=== PATIENT | female | born 1940 | race Caucasian/White ===

== ENCOUNTER 2017-02-23 06:52 | Outpatient (CLI) | payer MEDICARE, OTHER ==
[~2017-02-23] VITALS: Ht 152.4 cm; Wt 57.7 kg
--- NOTE | ~2017-02-23 | CATH ---
Cardiac Diagnostic + PCI Report Demographics Patient Name TAWANNA ARVIZU Gender Female Date of 1940 Age 76 year(s) Patient Number [id number] Date of Study 02/23/2017 Visit Number [id number] [place] [id number] Ht 152.4 cm Wt 57.7 kg Referring Dave Hidalgo Armani Primary Physician Physician IRVIN Pak MD Per[facility] Secondary Physician Physician Mellisa [facility] Diagnostic [facility] Assisting Physician Physician Mellisa CHOI Interventional [facility] [place] Physician Sand Cutter Physician Mellisa CHOI Addendum Added facility and accession # Findings and Conclusions Diagnostic Findings and Conclusion 2 vessel CAD. DÍAZ - LAD/DIAG patent. Mid RCA 60% diffuse disease. Diagnostic Recommendations iFR RCA. Interventional Findings and Conclusion iFR RCA 0.93 and is not physiologically significant and does not warrant any revascularization. Interventional Recommendations Medical treatment. Patient will be discharged later today. Continue current medications. Hydration and followup creatinine. Patient has been instructed to not lift anything more than 5 pounds for 1 week. I will plan on seeing the patient back in 2 week(s). I would like to thank Dr. Rocky Hinojosa for the opportunity to participate in the care of Mr. Fernandez. Procedure Description The patient was brought to the diagnostic cardiac catheterization-EP laboratory in the fasting, non-sedated state. Informed consent was obtained in the written and verbal form after the risks and benefits were explained. The patient had no further questions and agreed to proceed. The planned puncture-incision site(s) were shaved and prepped with ChloraPrep and draped in the usual sterile manner. Conscious sedation, supplemental oxygen, and pain control medications were delivered by a registered nurse under physician guidance. Surface ECG rhythm, blood pressure measurement, and pulse oximetry were monitored throughout the procedure. Arterial access. The access site was infiltrated with lidocaine. The vessel was entered with the Seldinger technique. A sheath was advanced into the vessel and used for catheter placement. Selective left coronary angiography. A catheter was advanced into the left coronary vessel ostium under Fluoroscopic guidance. Contrast was injected by hand. Images were obtained in multiple projections. Selective right coronary angiography. A catheter was advanced into the right coronary vessel ostium under fluoroscopic guidance. Contrast was injected by hand. Images were obtained in multiple projections. Left heart catheterization. A catheter was advanced across the aortic valve to the left ventricle under fluoroscopic guidance. Resting hemodynamics were obtained. Selective DÍAZ graft angiography. A catheter was advanced into the left internal mammary graft ostium under fluoroscopic guidance. Contrast was injected by hand. Images were obtained in multiple projections. Selective SVG angiography. A catheter was advanced into the graft proximal anastomosis under fluoroscopic guidance. Contrast was injected by hand. Images were obtained in multiple projections. iFR measurement was performed. The vessel was entered with a guiding catheter. The iFR wire was normalized and then advanced across the lesion. Measurements were taken. Arterial artery hemostasis was achieved. The patient was transferred to a regular nursing floor via cart accompanied by a nurse. The patient left the laboratory in stable condition. Diagnostic Cath Status: Elective Procedure Procedure Type PCI procedure:Additional Imaging:, FFR/iFR:, Initial Vessel Indications: Syncope and Abnormal Stress Test. The procedure was explained in detail to the patient. Risks, complications and alternative treatments were reviewed. Written consent was obtained. Medications Reviewed with Patient prior to Procedure. Angiographic Findings Dominance: Right Cardiac Arteries and Lesion Findings LMCA: Normal (0% Stenosis). LAD: Lesion on Prox LAD: 90% stenosis . Lesion on Mid LAD: 100% stenosis . LCx: Normal (0% Stenosis). RCA: Lesion on Mid RCA: 60% stenosis . Comments:iFR 0.93 Devices used - Verrata Pressure Wire. Number of passes: 1. Cardiac Grafts - There is a DÍAZ graft that originates at the DÍAZ and attaches to the Dist LAD (Patent). - There is a Vein graft that originates at the Aorta Left and attaches to the 1st Diag (Patent). Coronary Tree Procedure Data Procedure Date Date: 02/23/2017Start: 09:15 AMEnd: 09:57 AM Entry Locations - Retrograde Percutaneous access was performed through the Right Femoral artery (Primary location). A 6 Fr sheath was inserted. Hemostasis was successfully obtained using Angio-Seal STS PLUS ([facility]). Closure Comments: Performed by Dr. Carlton.. Procedure Medications Order and Administration + + +---------+ + !Time !Medication !Dosage !Route ! + + +---------+ + !02/23/2017 09:01 AM !Fentanyl !50 mcg !I.V. ! + + +---------+ + !02/23/2017 09:12 AM !Oxygen !2 l/min !NC ! + + +---------+ + !02/23/2017 09:14 AM !Versed !0.5 mg !I.V. ! + + +---------+ + !02/23/2017 09:21 AM !Versed !1 mg !I.V. ! + + +---------+ + !02/23/2017 09:50 AM !0.9% NaCl !200 ml !I.V. bolus ! + + +---------+ + Devices Used - A5 Fr. BS JL 3.5 Diag. Catheterwas used for:Left coronary angiography. - A5 Fr. BS JR 4 Diag. Catheterwas used for:Right coronary angiography. - A6 Fr. JR4 Guide Catheterwas used for:RCA Intervention. Contrast Material - Isovue 72233 ml Fluoroscopy Time: Diagnostic: 5:30 minutes. Total: 5:30 minutes. Fluoroscopy Dose: Diagnostic: 281 mGy. Total: 281 mGy. Estimated Blood Loss: 10 ml. Medical History Performed Procedures and Imaging Results - Stress testing with SPECT MPIwas performed. Results were: Positive. Risk/Extent of ischemia was: High risk. Allergies - Sulfa. 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 Admission Data Admit Source: Other Insurance Payors: Medicare. Admission Medications + +------+------+ + + + + !Medication !Dosage!Times !Last !Last !Administered !Comments ! ! ! !Per !Delivery !Delivery ! ! ! ! ! !Day !Date !Time ! ! ! + +------+------+ + + + + !BRY ! ! ! ! !Yes ! ! !Inhibitor ! ! ! ! ! ! ! !(any) ! ! ! ! ! ! ! + +------+------+ + + + + !Statin (any)! ! ! ! !Yes ! ! + +------+------+ + + + + !Aspirin ! ! ! ! !Yes ! ! !(any) ! ! ! ! ! ! ! + +------+------+ + + + + Clinical Evaluation Leading to Procedure - The patient's CAD presentation was assessed as: Symptom unlikely to be ischemic. 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 - The patient has been in a state of heart failure within the past two weeks. - The patient's heart failure status was assessed as NYHA Class II. Hemodynamics Condition: Rest O2 Consumption: Estimated: 134.01Heart Rate: 61 bpm Pressures (mmHg) +-----+ + !Site !Pressure ! +-----+ + !AO !103/53 (74) ! +-----+ + !LV !107/-3 ,2 ! +-----+ + !LV !104/0 ,3 ! +-----+ + !AO !107/54 (76) ! +-----+ + !LV !106/0 ,4 ! +-----+ + Valve Gradients and Areas + +---------+---------+---------+ +---------+ + !Valve !Peak !Mean !Area !Index !Flow !Source ! + +---------+---------+---------+ +---------+ + !Aortic !0 !0 ! ! ! ! ! + +---------+---------+---------+ +---------+ + !Aortic !0 !0 ! ! ! ! ! + +---------+---------+---------+ +---------+ + Shunts Oxygen Values O2 Capacity 189.04 O2 Consumption 134.01 Discharge Data Discharge Date: 02/23/2017 Signatures dtt: MELLISA SANDOVAL dtd: 02/23/17 0915 Physician Self Edkarthikeyan
[~2017-02-23 06:52] MED LIST: ASPIRIN LO-DOSE81 MG PO; LIPITOR40 MG PO; PRILOSEC20 MG PO; THERA-VITE W/ B1 TAB PO; VITAMIN B-12500 MCG PO; ZESTORETIC 20-1 EACH PO
[2017-02-23 07:48] LABS: BASOPHIL # 0.1 K/uL (0.0-0.2); BASOPHIL % 0.7 %; EOSINOPHIL # 0.2 K/uL (0.0-0.5); EOSINOPHIL % 2.6 %; HEMOGLOBIN 13.9 g/dL (10.0-15.0); IMMATURE GRANULOCYTE % 0.3 %; LYMPHOCYTE # 2.2 K/uL (0.8-4.0); LYMPHOCYTE % 24.3 %; MCH 31.7 pg (27.0-34.0); MCHC 34.8 gm/dL (32.0-36.5); MCV 91.3 fl (83.0-98.0); MONOCYTE # 0.8 K/uL (0.0-1.0); MONOCYTE % 8.4 %; MPV 8.4 fl (9.4-12.4); NEUTROPHIL # (ANC) 5.8 K/uL (1.8-7.8); NEUTROPHIL % 63.7 %; NRBC % 0 /100WBC (0-0.00); PLATELET COUNT 343 K/uL (150-450); RBC 4.38 M/uL (3.50-5.50); RDW-CV 13.4 % (11.9-14.6); WBC 9.1 K/uL (4.0-11.0)
[2017-02-23 07:59] LABS: INR - (THERAPEUTIC) 1.01 (0.92-1.07); PROTIME 10.6 SECONDS (9.8-11.4); PTT 29 SECONDS (25-32)
[2017-02-23 08:04] LABS: ALBUMIN 3.6 gm/dL (3.5-5.0); ANION GAP 8.6 (10.0-19.0); CALCIUM 8.8 mg/dL (8.5-10.5); CREATININE 0.9 mg/dL (0.5-1.1); POTASSIUM 3.6 mMol/L (3.7-5.1); TOTAL BILIRUBIN 0.9 mg/dL (0.0-1.5); TOTAL PROTEIN 6.6 g/dL (6.0-8.4)
== END 2017-02-23 12:15 | disposition disaster alternative care site (69) ==
LOC: GPOC 06:52 → GPCU 06:52 → GPOC 07:00
PROVIDERS: Internal Medicine Interventional Cardiology
DX: R06.02 Shortness of breath (principal); R93.1 Abnormal findings on diagnostic imaging of heart and coronary circulation; R94.39 Abnormal result of other cardiovascular function study; I25.10 Atherosclerotic heart disease of native coronary artery without angina pectoris; Z01.812 Encounter for preprocedural laboratory examination; Z79.82 Long term (current) use of aspirin; Z79.899 Other long term (current) drug therapy
CPT/HCPCS: C1760; C1769; C1887; J1644; J2001; J2250; J3010; J7030